=== PATIENT | female | born 1985 | race Caucasian/White ===

== ENCOUNTER 2019-03-21 06:19 | Inpatient (IN) ==
[2019-03-21] MEDS ORDERED: D5 1/2 NS 1000 ML 1,000 ML IV ONE (06:31)
--- NOTE | 2019-03-21 07:03 | DR.OB ---
OB Quick Note - Assessment/Plan Assessment/Plan: L&D 03/21/19 at 6:55am S-No complaint. O-Afebrile,VSS WLY=227 with good LTV, +accel, no decel. CTX=none CVX=1cm/50%/-1/VTX AROM with clear fluid. IUPC and FSE placed. A-IUP at 39 0/7 weeks for induction +GBS AMA asthma P-Begin pitocin induction IV ABX in labor for GBS Anticipate
[2019-03-21] MEDS ORDERED: AMPICILLIN VIAL 2 GRAM ONE (07:07)
[2019-03-21] MEDS ORDERED: NS 100 ML IV 100 ML IV ONE (07:07)
[2019-03-21] MEDS ORDERED: MORPHINE SULFATE INJ 2 MG INJ IVP PRN (07:16)
[2019-03-21] MEDS ORDERED: PHENERGAN INJ 25 MG IM PRN ×2 (07:16→13:48)
[2019-03-21] MEDS ORDERED: NUBAIN INJ 200 MG VIAL MULTIDOSE IVP PRN (07:16)
[2019-03-21] MEDS ORDERED: AMPICILLIN VIAL 2 GRAM 2 G in NS 100 ML IV + SPIKE MINIBAG* 100 ML IV SCH (07:16)
[2019-03-21] MEDS ORDERED: REGLAN INJ 10 MG VIAL IVP PRN ×2 (07:16→13:48)
[2019-03-21] MEDS ORDERED: D5 1/2 NS 1000 ML 1,000 ML IV SCH (07:16)
[2019-03-21] MEDS ORDERED: PITOCIN IVP ONE (07:16)
[2019-03-21] MEDS ORDERED: D5LR 1L W PITOCIN 10 UNITS/L 10 UNITS/1,000 ML BAG IV PRN (07:16)
[2019-03-21] MEDS ORDERED: LR 1000 ML IV 1,000 ML IV ONE ×2 (07:41→09:47)
[2019-03-21] MEDS ORDERED: D5 1/2 NS 1L W PITOCIN 20 UNITS/L 20 UNITS/1,000 ML BAG IV ONE (07:42)
[2019-03-21] MEDS ORDERED: D5LR 1L W PITOCIN 10 UNITS/L 10 UNITS/1,000 ML BAG IV ONE (07:42)
[2019-03-21] MEDS ORDERED: PITOCIN ONE (07:42)
[2019-03-21] MEDS: VSL#3 PO SCH (08:01)
[2019-03-21] MEDS: AMPICILLIN VIAL 1 GRAM 1 G in NS 50 ML IV + SPIKE MINIBAG* 50 ML IV SCH ×2 (08:01→08:02)
[2019-03-21] MEDS ORDERED: NS IRRIGATION 1000 ML ONE (09:03)
[2019-03-21] MEDS ORDERED: FENTANYL INJ 100 mcg ONE (09:30)
[2019-03-21] MEDS ORDERED: NAROPIN EPIDURAL 0.2% + FENTANYL 90MCG 60 ML EPI ONE (09:30)
[2019-03-21] MEDS ORDERED: XYLOCAINE 1 % (PLAIN) ONE (09:44)
[2019-03-21] MEDS ORDERED: EPHEDRINE SULFATE INJ ONE (09:46)
[2019-03-21] MEDS ORDERED: XYLOCAINE 2% and EPINEPHRINE 1:100,000 ONE (12:17)
--- NOTE | 2019-03-21 12:21 | DR.OB ---
OB Quick Note - Assessment/Plan Assessment/Plan: L&D 03/21/19 at 12:15pm Patient checked and noted to be 4cm/90%/0. FHT declined into a decel to 90's for 10 minutes, not responsive to conservative tx. To OR for distress.
[2019-03-21] MEDS ORDERED: DILAUDID INJ ONE (13:08)
[2019-03-21] MEDS ORDERED: BENADRYL INJ 50 MG VIAL IVP PRN ×2 (13:48→14:28)
[2019-03-21] MEDS ORDERED: ZOFRAN INJ 4 MG VIAL IVP PRN ×2 (13:48→14:28)
[2019-03-21] MEDS ORDERED: ADACEL or BOOSTRIX TDaP VACCINE IM ONE (14:28)
[2019-03-21] MEDS ORDERED: MYLICON TAB 80 MG CHEW PO PRN (14:28)
[2019-03-21] MEDS ORDERED: PERCOCET TAB 5/325 MG PO PRN (14:28)
[2019-03-21] MEDS ORDERED: NARCAN INJ IVP PRN (14:28)
[2019-03-21] MEDS ORDERED: D5 1/2 NS 1000 ML 1,000 ML with PITOCIN 20 UNITS IV SCH ×2 (14:28)
[2019-03-21] MEDS ORDERED: DIPRIVAN VIAL ONE (14:38)
[2019-03-21] MEDS ORDERED: REFLEX: PROVENTIL NEB & PulmiCORT NEB~ NEB SCH (15:30)
[2019-03-21] MEDS: TORADOL 30 MG VIAL IVP PRN ×2 (16:35→21:36)
[2019-03-21] MEDS: PROVENTIL NEB TX 0.083% 2.5MG/ 3ML NEB SCH ×2 (17:00→21:06)
[2019-03-21] MEDS: PULMICORT NEB TX 0.5 MG NEB SCH (21:06)
[2019-03-22] MEDS: VSL#3 PO SCH ×2 (00:48→08:45)
[2019-03-22] MEDS: TORADOL 30 MG VIAL IVP PRN (04:21)
[2019-03-22 05:36] LABS: HEMATOCRIT 30.2 % (36.0-47.0); HEMOGLOBIN 10.1 g/dL (12.0-16.0)
[2019-03-22] MEDS: PRENATAL PLUS PO SCH (08:45)
[2019-03-22] MEDS: ZyrTEC TAB 10 MG PO SCH (08:45)
[2019-03-22] MEDS: COLACE CAP 100 MG PO SCH ×2 (08:45→20:28)
[2019-03-22] MEDS: PULMICORT NEB TX 0.5 MG NEB SCH ×2 (09:16→21:00)
[2019-03-22] MEDS: PROVENTIL NEB TX 0.083% 2.5MG/ 3ML NEB SCH ×4 (09:17→21:00)
[2019-03-22] MEDS: MOTRIN TAB 800 MG PO PRN (13:00)
[2019-03-22] MEDS: BACTROBAN TOPICAL OINT TOP SCH ×2 (13:00→21:43)
[2019-03-22] MEDS: PERCOCET TAB 5/325 MG PO PRN ×2 (13:27→19:54)
[2019-03-23] MEDS: PERCOCET TAB 5/325 MG PO PRN (03:34)
[2019-03-23 04:49] VITALS: BP 126/70
[2019-03-23] MEDS: ZyrTEC TAB 10 MG PO SCH (08:45)
[2019-03-23] MEDS: MOTRIN TAB 800 MG PO PRN (08:45)
[2019-03-23] MEDS: COLACE CAP 100 MG PO SCH (08:45)
[2019-03-23] MEDS: VSL#3 PO SCH (08:45)
[2019-03-23] MEDS: PRENATAL PLUS PO SCH (08:45)
[2019-03-23] MEDS: PROVENTIL NEB TX 0.083% 2.5MG/ 3ML NEB SCH (09:10)
[2019-03-23] MEDS: PULMICORT NEB TX 0.5 MG NEB SCH (09:10)
== END 2019-03-23 11:25 | disposition home or self-care (01) | DRG 788 ==
LOC: LD 06:19 → MED/SURG 14:17
PROVIDERS: ADMIT Specialist; ATTEND Specialist
DX: O99.824 Streptococcus B carrier state complicating childbirth; B95.1 Streptococcus, group B, as the cause of diseases classified elsewhere; O99.89 Other specified diseases and conditions complicating pregnancy, childbirth and the puerperium; Z37.0 Single live birth; Z3A.39 39 weeks gestation of pregnancy; O77.8 Labor and delivery complicated by other evidence of fetal stress; O99.513 Diseases of the respiratory system complicating pregnancy, third trimester
CPT/HCPCS: 36415; 85014; 85018; 94640; A4216; A4222; S0197; J0290; J1885; J2001; J2590; J2704; J3490; J7050; J7120; J7613; J7626; S5010